=== PATIENT | female | born 1995 | race Caucasian/White ===

== ENCOUNTER 2024-03-04 18:33 | Emergency (ER) | payer BC, OTHER ==
[2024-03-04 19:06] VITALS: BP 130/94; PULSE 100; RESP 16; TEMP 97.9; BMI 35.2
[2024-03-04 19:11] LABS: HEMATOCRIT 44.4 % (32.4-45.2); HEMOGLOBIN 14.9 G/dL (10.7-15.3); MCHC 33.5 g/dl (32.0-36.0); MEAN CELL VOLUME 92.6 fl (80-96); MEAN PLT VOLUME 8.6 fl (7.5-11.1); PLATELET COUNT 241.5 10^3/uL (134-434); RDW 12.3 % (11.6-15.6)
[2024-03-04 19:29] LABS: ALBUMIN 4.4 g/dl (3.4-5.0); BILIRUBIN,TOTAL 0.7 mg/dl (0.2-1); CALCIUM 9.7 mg/dl (8.5-10.1); CREATININE 0.9 mg/dl (0.6-1.3); TOT PROT 7.1 g/dl (6.4-8.2)
== END 2024-03-04 21:00 | disposition home or self-care (01) ==
LOC: FER 18:33
DX: R10.2 Pelvic and perineal pain (principal)
CPT/HCPCS: 36415; 76830-TC; 80053; 81003; 85027; 87086; 99284-25

== ENCOUNTER 2024-05-26 18:48 | Emergency (ER) | payer BC, OTHER ==
[2024-05-26 18:56] VITALS: BP 129/69; PULSE 108; RESP 18; TEMP 98; BMI 35.2
[2024-05-26] MEDS ORDERED: METHOCARBAMOL 500 MG TABLET ONE (21:52)
[2024-05-26] MEDS ORDERED: ACETAMINOPHEN 500 MG TABLET (FP) ONE (21:52)
[2024-05-26] MEDS: ACETAMINOPHEN 500 MG TABLET (FP) PO ONE (22:19)
[2024-05-26] MEDS: METHOCARBAMOL 500 MG TABLET PO ONE (23:02)
== END 2024-05-26 23:26 | disposition home or self-care (01) ==
LOC: JERFT 18:48
DX: S00.03XA Contusion of scalp, initial encounter (principal); R07.89 Other chest pain; V47.5XXA Car driver injured in collision with fixed or stationary object in traffic accident, initial encounter; Y92.412 Parkway as the place of occurrence of the external cause
CPT/HCPCS: 70450-TC; 71046-TC-FY; 84703; 93005; 93010; 99285-25